=== PATIENT | male | born 1985 ===

== ENCOUNTER 2017-01-07 21:10 | Emergency (ER) | payer OTHER ==
[2017-01-07 21:24] VITALS: RESP 16; TEMP 98.2
--- NOTE | 2017-01-07 22:39 | EDPHY ---
H & P Stated Complaint: says hit head with +LOC 5 days ago, sx dissipated, yest-today am n/v Time Seen by Provider: 01/07/17 22:03 HPI/ROS: HPI The patient presents with headache, vomiting, nausea for the last 2 days. He sustained a head injury 5 days ago while heavily intoxicated. He was running in the street, caught his foot and fell forward hitting his head on a cement corner he believes. He did lose consciousness. He felt a bit foggy and confused for a while and then over the last 2 days has begun vomiting. He says he has trouble focusing, and feels distracted. He also endorses photophobia. He has had intermittent vomiting with this which occurs without warning, last episode was somewhat blood streaked. He denies any dark or bloody stools. He does not have any abdominal pain though feels bloated. He does report intermittent NSAID use. REVIEW OF SYSTEMS Constitutional: No fever, no chills. Eyes: No discharge. ENT: No sore throat. Cardiovascular: No chest pain, no palpitations. Respiratory: No cough, no shortness of breath. Gastrointestinal: No abdominal pain, + vomiting. Genitourinary: No hematuria. Musculoskeletal: No back pain. Skin: No rashes. Neurological: + headache. PMHx: Migraine headaches Soc Hx: Chronic alcohol abuse PHYSICAL General Appearance: Alert, no distress Eyes: Pupils equal and round no pallor or injection ENT, Mouth: Mucous membranes moist Respiratory: There are no retractions, lungs are clear to auscultation Cardiovascular: Regular rate and rhythm Gastrointestinal: Abdomen is soft and non-tender, no masses, bowel sounds normal Neurological: A&O, cranial nerves 2-12 intact, 5/5 strength in upper and lower extremities which is symmetric, normal finger to nose and heel to porras testing Skin: Warm and dry, left forehead with 2 cm laceration which is healing Musculoskeletal: Neck is supple non tender Extremities: symmetrical, full range of motion Psychiatric: Patient is oriented X 3, there is no agitation Source: Patient Exam Limitations: No limitations - Medical/Surgical History Hx Asthma: No Hx Chronic Respiratory Disease: No Hx Diabetes: No Hx Cardiac Disease: No Hx Renal Disease: No Hx Cirrhosis: No Hx Alcoholism: No Hx HIV/AIDS: No Hx Splenectomy or Spleen Trauma: No Other PMH: surg for testicular varicocele - Social History Smoking Status: Current every day smoker Constitutional: Initial Vital Signs Temperature (C) 36.8 C 01/07/17 21:18 Heart Rate 93 01/07/17 21:18 Respiratory Rate 16 01/07/17 21:18 Blood Pressure 163/106 H 01/07/17 21:18 O2 Sat (%) 99 01/07/17 21:18 O2 Delivery Mode Room Air Allergies/Adverse Reactions: No Known Allergies Allergy (Unverified 01/07/17 21:24) Home Medications: Medication Instructions Recorded NK [No Known Home Meds] 01/07/17 Medical Decision Making - Diagnostics Imaging: CT head non con shows no acute injury, discussed with the radiologist. ED Course/Re-evaluation: The patient was given 1 L of normal saline for vomiting with improvement in his symptoms. He had no further episodes of vomiting here. Labs were checked and were unremarkable. I feel he likely has alcoholic gastritis. I have advised him to cut down on his alcohol use. I have advised him to stop using NSAIDs and to take famotidine or Tums as needed for his symptoms. I will refer her to a primary care doctor. CT head was also unremarkable, I feel he is likely suffered from a concussion and I have discussed this with him. Differential Diagnosis: This is a 31-year-old male with history of chronic alcohol abuse who presents from home after head injury sustained 5 days ago, now with nausea, vomiting, headache as well as confusion with trouble focusing. His vomiting is blood tinged and associated with abdominal bloating. Differential diagnosis includes concussion, intracranial hemorrhage, pancreatitis, gastritis. - Data Points Laboratory Results: Laboratory Results 01/07/17 23:15 01/07/17 23:15 01/07/17 01/07/17 23:15 23:15 WBC 6.74 10^3/uL 10^3/uL (3.80-9.50) RBC 4.99 10^6/uL 10^6/uL (4.40-6.38) Hgb 15.2 g/dL g/dL (13.7-17.5) Hct 43.5 % % (40.0-51.0) MCV 87.2 fL fL (81.5-99.8) MCH 30.5 pg pg (27.9-34.1) MCHC 34.9 g/dL g/dL (32.4-36.7) RDW 13.7 % % (11.5-15.2) Plt Count 278 10^3/uL 10^3/uL (150-400) MPV 9.2 fL fL (8.7-11.7) Neut % (Auto) 80.1 % H % (39.3-74.2) Lymph % (Auto) 10.5 % L % (15.0-45.0) [place]undy % (Auto) 8.5 % % (4.5-13.0) Eos % (Auto) 0.0 % L % (0.6-7.6) Baso % (Auto) 0.6 % % (0.3-1.7) Nucleat RBC Rel Count 0.0 % % (0.0-0.2) Absolute Neuts (auto) 5.40 10^3/uL 10^3/uL (1.70-6.50) Absolute Lymphs (auto) 0.71 10^3/uL L 10^3/uL (1.00-3.00) Absolute Monos (auto) 0.57 10^3/uL 10^3/uL (0.30-0.80) Absolute Eos (auto) 0.00 10^3/uL L 10^3/uL (0.03-0.40) Absolute Basos (auto) 0.04 10^3/uL 10^3/uL (0.02-0.10) Absolute Nucleated RBC 0.00 10^3/uL 10^3/uL (0-0.01) Immature Gran % 0.3 % % (0.0-1.1) Immature Gran # 0.02 10^3/uL 10^3/uL (0.00-0.10) Sodium 136 mEq/L mEq/L (134-144) Potassium 4.5 mEq/L mEq/L (3.5-5.2) Chloride 93 mEq/L L mEq/L (97-110) Carbon Dioxide 27 mEq/l mEq/l (22-31) Anion Gap 16 mEq/L mEq/L (8-16) BUN 14 mg/dL mg/dL (7-23) Creatinine 0.8 mg/dL mg/dL (0.7-1.3) Estimated GFR > 60 Glucose 97 mg/dL mg/dL (70-100) Calcium 10.7 mg/dL H mg/dL (8.5-10.4) Phosphorus 4.0 mg/dL mg/dL (2.5-4.5) Total Bilirubin 1.3 mg/dL mg/dL (0.1-1.4) AST 46 IU/L IU/L (17-59) ALT 43 IU/L IU/L (21-72) Alkaline Phosphatase 71 IU/L IU/L (38-126) Total Protein 8.4 g/dL H g/dL (6.3-8.2) Albumin 5.0 g/dL g/dL (3.5-5.0) Lipase 87.0 IU/L IU/L (23-300) Medications Given: Discontinued Medications Ondansetron HCl (Zofran Odt 4 Mg Prepack#2) 1 btl TAKEHOME EDNOW ONE Stop: 01/08/17 00:28 Last Admin: 01/08/17 00:32 Dose: 1 btl Departure - Departure Disposition: Home, Routine, Self-Care Clinical Impression: Concussion Qualifiers: Encounter type: initial encounter Loss of consciousness presence/duration: with LOC of 30 min or less Qualified Code(s): S06.0X1A - Concussion with loss of consciousness of 30 minutes or less, initial encounter Gastritis Qualifiers: Gastritis type: alcoholic Chronicity: acute Gastritis bleeding: presence of bleeding unspecified Qualified Code(s): K29.20 - Alcoholic gastritis without bleeding Condition: Good Instructions: Gastritis (ED), Diet for Stomach Ulcers and Gastritis (ED), Concussion (ED), Abuse of Alcohol (ED) Additional Instructions: I recommend you stop drinking. He should maintain a bland diet until your nausea and vomiting has improved. You can try Tums or Pepcid as needed for any continued symptoms. Referrals: Lexy Lenz MD [Medical Doctor] - As per Instructions [facility] [Outside] - As per Instructions
[2017-01-07 23:26] LABS: % IMMATURE GRANULYOCYTES 0.3 % (0.0-1.1); ABSOLUTE IMMATURE GRANULOCYTES 0.02 10^3/uL (0.00-0.10); ADD DIFF? NO; ADD MORPH? NO; ADD SCAN? NO; ATYPICAL LYMPHOCYTE FLAG 0 (0-99); FRAGMENT RBC FLAG 0 (0-99); HEMATOCRIT 43.5 % (40.0-51.0); HEMOGLOBIN 15.2 g/dL (13.7-17.5); LEFT SHIFT FLG 0 (0-99); LIPEMIA HEMOLYSIS FLAG 90 (0-99); MEAN CELL HEMOGLOBIN 30.5 pg (27.9-34.1); MEAN CELL HEMOGLOBIN CONCENTR. 34.9 g/dL (32.4-36.7); MEAN CELL VOLUME 87.2 fL (81.5-99.8); MEAN PLATELET VOLUME 9.2 fL (8.7-11.7); PLATELET CLUMPS FLAG 10 (0-99); PLATELET COUNT 278 10^3/uL (150-400); RED BLOOD CELL COUNT 4.99 10^6/uL (4.40-6.38); RED CELL DISTRIBUTION WIDTH 13.7 % (11.5-15.2)
[2017-01-07 23:50] LABS: ALANINE AMINOTRANSFERASE 43 IU/L (21-72); ALKALINE PHOSPHATASE 71 IU/L (38-126); ANION GAP 16 mEq/L (8-16); ASPARTATE AMINOTRANSFERASE 46 IU/L (17-59); BILIRUBIN,TOTAL 1.3 mg/dL (0.1-1.4); CALCIUM 10.7 mg/dL (8.5-10.4); CARBON DIOXIDE 27 mEq/l (22-31); CHLORIDE 93 mEq/L (97-110); CREATININE 0.8 mg/dL (0.7-1.3); GLOMERULAR FILTRATION RATE > 60; GLUCOSE 97 mg/dL (70-100); POTASSIUM 4.5 mEq/L (3.5-5.2); SODIUM 136 mEq/L (134-144); TOTAL PROTEIN 8.4 g/dL (6.3-8.2)
[2017-01-08 00:06] VITALS: BP 148/92; PULSE 69; O2SAT 98
[2017-01-08] MEDS ORDERED: ONDANSETRON 4MG PREPACK#2 BTL TAKEHOME ONE (00:27)
== END 2017-01-08 00:44 | disposition home or self-care (01) ==
DX: S06.0X9A Concussion with loss of consciousness of unspecified duration, initial encounter (principal); K29.20 Alcoholic gastritis without bleeding; F17.200 Nicotine dependence, unspecified, uncomplicated; W18.09XA Striking against other object with subsequent fall, initial encounter; Y92.410 Unspecified street and highway as the place of occurrence of the external cause; Y93.02 Activity, running